=== PATIENT | male | born 1960 | race Caucasian/White ===

== ENCOUNTER 2016-11-07 14:59 | Emergency (ER) | payer MEDICAID ==
[~2016-11-07] VITALS: Ht 170.2 cm; Wt 61.7 kg
[~2016-11-07 14:59] MED LIST: DICLOFENAC 50MG50 MG PO; FLEXERIL10 M1 PO; FLEXERIL10 MG PO; LODINE400 MG PO; NOMEDS XX
[2016-11-07] MEDS ORDERED: BACTRIM DS 8001 TA1 PO (15:23)
--- NOTE | 2016-11-07 15:23 | Urgent Treatment Center Report ---
History of Present Issue Date/Time Seen by Provider 11/07/16 1515 Visit Reason Pt arrived:Walked Presenting Problem:PT STATES HE WAS BITTEN ON THE LEFT FOREARM YESTERDAY AND BURNED HIMSELF ON THE LEFT WRIST 2 WEEKS AGO AND REPORTS PAIN AND BURNING ON THE BITE AND BURN. Location if Accident: Onset of symptoms date/time:/ or onset unknown for:MEDICAL HX UNKNOWN Have you (or family members/close friends) recently traveled outside the [place]? N If Yes, where/when: Have you had exposure to infectious disease within the past month? TB? Other? Specify: Patient states that he recently burned his hand and wrist while working on a car States that last night he was working on another car and thinks he may have been bitten by something. States that he noticed a red area with what appears to be a insect bit in the middle and that it felt a little warm to touch and as the day went on states that pain in area continued to get worse so he decided to come in and get checked ALLERGIES Coded Allergies: Penicillins (03/03/15) Home Medications Reported Medications No Home Medications (NO HOME MEDICATIONS) 1 EACH XX ONCE History Medical History General CAD? No Angina: No OR: No Hypertension? No Hyperlipidemia? No CHF? No DVT? No PE? No COPD? No Asthma? No Anemia? No GERD? No Gastric ulcers? No GI Bleed? No Hernia? No Thyroid Problems? No Hypothyroidism? No CVA? No Seizures? No Diabetes? No Renal Insuffiency? No UTI? No Stones? No BPH? No GB Disease: No Nephritic Syndrome? No Asplenia? No Hepatitis? No Sickle Cell Disease? No Arthritis? No Migraines? No Cataracts? No Glaucoma? No MRSA? No HIV? No TB? No Anxiety? No Depression? No Cancer? No More? No Immunization HX DT/Tetanus Unknown Surgical Hx Previous Surgery?N Social History Smoking Hx Smoker: Current Every Day Smoker Tobacco: Yes Type Cigarettes Packs/day < 1 Pack Alcohol Alcohol: No Review of Systems All Other Systems Reviewed and Negative Comment burn wound on left wrist and redness and swelling to left forearm Physical Exam Vital Signs Vital Signs Date Time Temp Pulse Resp B/P Pulse O2 O2 Flow FiO2 Ox Delivery Rate 11/07 1514 98.1 71 20 114/64 97 11/07 1502 98.1 71 20 114/64 97 General Appearance normal appearance, WD/WN, no apparent distress Respiratory Status Yes: trachea midline, chest symmetrical, non tender chest. No: respiratory distress. Cardiovascular normal exam, regular rate/rhythm, no peripheral edema, no gallop Extremities Healing burn wounds on left wrist area, small round area on left forearm with redness encircling what appears to be a bite sharda. 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 No Departure Departure Time of Disposition 1519 Disposition DC Home or Self Care(routine) Clinical Impression Primary Impression: Skin infection Condition STABLE Patient Instructions DI for Wound Infection Additional Instructions Take antibiotics as prescribed Follow up with family doctor if needed REturn if needed Keep area clean and dry Monitor area for streaks or worsening of area around bite and watch for area to continue to grow despite antibiotics, fever, chills, or streaks from the area Discharge Counseling Counseled pt/family regarding diagnosis, medications/RX, home care, follow up needs Prescriptions Current Visit Scripts SULFAMETHOXAZOLE W/TRIMETHOPRI (Bactrim Ds Tab) 1 TABLET PO BID #20 TAB at 4882
[2016-11-07 15:31] VITALS: BP 114/64
--- OUTSIDE RECORDS SUMMARY | 2016-11-08 15:17 | External Medical Summary Rpt ---
Author Author , ALEX JOHNSON Address Unknown Phone [email or web address] Care Team Providers Care Construction Equipment Technician Name Role Phone AWOSIKA ITA, AWOSIKA Unavailable Unavailable ITA AWOSIKA ITA, AWOSIKA Unavailable Unavailable HAYDER ALVAREZ Unavailable Unavailable HARRIS SINGLETARY MD, Unavailable Unavailable CECILIA SINGLETARY MD [facility] Unavailable Unavailable CONSULTANTS O, [facility] RAFAEL YOUNGBLOOD, RAFAEL Unavailable Unavailable RYLIE DHEERAJ FREYA, Unavailable Unavailable DHEERAJ FREYA GORE DEN, GORE DEN Unavailable Unavailable [facility] Un[facility], [facility] YOUSIF ABR, YOUSIF Unavailable Unavailable [facility]BR [facility] Unavailable Unavailable IMAGING [facility], [facility] [place] Unavailable Unavailable HOLDINGS, [facility] Unavailable Unavailable HOLDINGS, [facility] [place] [facility] Un[facility] Unavailable [facility], [facility] Unavailable Unavailable SERVICES, [facility]available Unavailable ASSOCI, [facility] Unavailable Unavailable SURGERY, [facility] SURGERY [facility] Unavailable Unavailable MEDICAL, [facility] MEDICAL [facility], Unavailable Unavailable PLL, [facility], [facility] TAMIKA MAT, Unavailable Unavailable TAMIKA MAT SOTINGEANU FILIPE, Unavailable Unavailable SOTINGEANU FILIPE SPADY TAMIKA, SPADY TAMIKA Unavailable Unavailable RAY PRICE, RAY Unavailable Unavailable DEE PRICE, RAY Unavailable Unavailable DEE Purpose Continuity of Care Document - 04-10-2013 through 2016 Problems Code Diagnosis DOS Provider Status H547 UNSPECIFIED 12-06-2015 [facility] R0602 SHORTNESS 12-06-2015 [facility] OF BREATH FAMILY [facility] CTR R110 NAUSEA 12-06-2015 [facility] FAMILY [facility] CTR R42 DIZZINESS 12-06-2015 [facility] [place] AND [facility] GIDDINESS [facility] Z0000 ENCOUNTER 12-06-2015 LAB [facility] GEN ADULT [place] MED EXAM HOLDINGS W/O ABNORMAL FIND [id number] STRAIN 03-03-2015 [facility] TENDON LOW BACK INITIAL Z720 TOBACCO USE 03-03-2015 [facility] 66164 BORDERLINE 05-26-2014 AWOSIKA ITA GLAUC OPEN ANGLE BL FINDINGS LOW RSK 3670 HYPERMETROP 05-26-2014 AWOSIKA ITA IA 3674 PRESBYOPIA 05-26-2014 AWOSIKA ITA 66344 ABDOMINAL 03-31-2014 [facility] PA[facility], GENERAL EPIGASTRIC SURGERY V160 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[facility] 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 [facility]ULTANTS O 4139 OTHER AND 10-19-2013 [facility] UNSPECIFIED REGIONAL ANGINA MEDICAL PECTORIS 89816 CORONARY 10-19-2013 [facility] ATHEROSCLER REGIONAL OSIS [place] MEDICAL CORONARY ARTERY 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 CONSULTANTS N O 4439 UNSPECIFIED 10-19-2013 [facility] PERIPHERAL REGIONAL VASCULAR MEDICAL DISEASE 496 CHRONIC 10-19-2013 [facility] AIRWAY REGIONAL OBSTRUCTION MEDICAL NEC 93395 NONSPECIFIC 10-19-2013 [facility] ABNORMAL REGIONAL ELECTROCARD MEDICAL IOGRAM 4169 UNSPECIFIED 09-30-2013 [facility] CHRONIC [facility] PULMONARY [facility] HEART O DISEASE 7808 GENERALIZED 09-30-2013 [facility] [place] [address] SHORTNESS 09-29-2013 [facility] [place] [facility] [place] [address]49 GENERALIZED 09-16-2013 [facility] PAIN REGIONAL MEDICAL 72257 CHEST PAIN 09-10-2013 [facility] UNSPECIFIED [facility]AR [facility]S O 4589 UNSPECIFIED 09-02-2013 [facility] REGIONAL HYPOTENSION MEDICAL 7859 OTHER 08-21-2013 [facility] SYMPTOMS [facility] INVOLVING CONSULTANTS [facility] O LAR SYSTEM 27533 OTHER 08-19-2013 RAY DEE [place] [address] OTHER 08-19-2013 [facility]SPECIFIC [facility] ABNORMAL ASSOCIAT FINDING OF LUNG FIELD 7242 LUMBAGO 04-10-2013 [facility] 7246 DISORDERS 04-10-2013 [facility] 847.2 847.2 04-10-2013 [facility] REGION 8472 LUMBAR 04-10-2013 [facility] Allergies, Adverse Reactions, Alerts Type Drug Allergy Adverse Reaction to Substance Substance Reaction Severity PCN (penicillin) I-RASH Intermediate Medications Na ND Rx Da Fi Fi Am Da Di Ph RX Ph St me C No te ll ll ou ys ag ar # ys at rm s nt no ma ic us Or Da si cy ia de te s n re d OR 17 01 0 No PH 47 -1 EN 80 0- Lo AD 53 20 ng RI 80 14 er NE 2 Ac 30 ti ve MG /M L AL Vital Signs 04-10-2013 13:24 Name Value Interpretat Reference Comment ion Range BP 62 mm[Hg] Diastolic BP Systolic 128 mm[Hg] Heart 79 /min Rate/Pulse O2% 97 % Respiratory 20 /min Rate 04-10-2013 13:12 Name Value Interpretat Reference Comment ion Range BP 57 mm[Hg] Diastolic BP Systolic 125 mm[Hg] Heart 77 /min Rate/Pulse O2% 97 % Respiratory 20 /min Rate Procedures Procedure DOS Code Location Performer Comment GENERAL 49208 [facility] 6 [place] PANEL HOLDINGS HOLDINGS HEMOGLOBI 03683 LAB S[facility] LAB SUD[facility] N 6 [place] GLYCOSYLA HOLDINGS [place] [address] [place] [address] LAB [facility] LAB S[facility] PROSTATE 6 [place] SPECIFIC HOLDINGS HOLDINGS ANTIGEN TOTAL THERAPEUT 04790 JEN MENDEZON IC 5 [facility] PROPHYLAC INC INC TIC/DX INJECTION SUBQ/IM OPHTH 95780 [facility] 5 ITA ITA XM&EVAL COMPRE NEW PT 1/> VST [facility]I 41998 [facility] ITA OPHTHALMI C IMAGING OPTIC NERVE BLOOD 28674 [facility] ME[facility] COUNT 4 W W COMPLETE REGIONAL REGIONAL AUTO&AUTO MEDICAL MEDICAL DIFRNTL WBC CATHETER C1887 MICHAEL MEAWVIE GUIDING 4 W W REGIONAL REGIONAL MEDICAL MEDICAL INJECTION J2250 [facility] MEADOWVIE 4 W W MIDAZOLAM REGIONAL REGIONAL HCL PER MEDICAL MEDICAL 1 MG INJECTION J1644 CHRISVIE [facility]OW[facility] HEPARIN 4 W W SODIUM REGIONAL REGIONAL PER 1000 MEDICAL MEDICAL UNITS INJECTION J2001 MICHAEL CONTRERASWVIE 4 W W LIDOCAINE REGIONAL REGIONAL HCL MEDICAL MEDICAL INTRAVENO US INFUS 10 MG INFUSION J7030 ANDERWJOSE ANGEL BENWVIE NORMAL 4 W W SALINE REGIONAL REGIONAL SOLUTION MEDICAL MEDICAL 1000 CC R & L HRT 60723 CARDIOVAS TAMIKA CATH 4 CULAR MAT WINJX HRT CONSULTAN ART& L TS O VENTR IMG BASIC 93564 MICHAEL RODRIGUEZ METABOLIC 4 W W PANEL REGIONAL REGIONAL CALCIUM MEDICAL MEDICAL TOTAL COLLECTIO 74160 MICHAEL CONTRERASWVIE N VENOUS 4 W W BLOOD REGIONAL REGIONAL VENIPUNCT MEDICAL MEDICAL URE GLUC BLD 78580 MICHAEL RODRIGUEZ GLUC MNTR 4 W W DEV REGIONAL REGIONAL CLEARED MEDICAL MEDICAL FDA SPEC HOME USE ECG 35512 CARDIOVAS TAMIKA ROUTINE 4 CULAR MAT ECG CONSULTAN W/LEAST TS O 12 LDS W/I&R MYOCARDIA 40694 CARDIOVAS TAMIKA L SPECT 4 CULAR MAT MULTIPLE CONSULTAN STUDIES TS O CV STRS 32787 [place] YOUSIF TST 4 VALLEY ABR XERS&/OR HEART RX CONT ECG W/O I&R CV STRS 08230 CHRISJOSE ANGEL BENWVIE TST 4 W W XERS&/OR REGIONAL REGIONAL RX CONT MEDICAL MEDICAL ECG TRCG ONLY INJECTION J2785 MICHAEL CONTRERASWVIE 4 W W REGADENOS REGIONAL REGIONAL ON 0.1 MG MEDICAL MEDICAL ECHO 29001 MICHAEL RODRIGUEZ TTHRC R-T 4 W W 2D REGIONAL REGIONAL W/WOM-MOD MEDICAL MEDICAL E COMPL SPEC&COLR D NON-INVAS 73894 CARDIOVAS TAMIKA ELEANOR 4 CULAR MAT PHYSIOLOG CONSULTAN IC STUDY TS O EXTREMITY 3 LEVLS TECHNETIU A9502 MICHAEL RODRIGUEZ M TC-99M 4 W W TETROFOSM REGIONAL REGIONAL IN DX PER MEDICAL MEDICAL STUDY DOSE COLLECTIO 08802 MICHAEL CONTRERASWJOSE ANGEL N VENOUS 4 W W BLOOD REGIONAL REGIONAL VENIPUNCT MEDICAL MEDICAL URE BASIC 12588 [facility] METABOLIC 4 W W PANEL [facility] CALCIUM MEDICAL MEDICAL TOTAL LIPID 70111 MEAD[facility] MEADOW[facility]IE PANEL 4 W W [facility] MEDICAL MEDICAL HEPATIC 15829 ME[facility] MEADOWVIE FUNCTION 4 W W [facility] MEDICAL MEDICAL GASES 94071 BENWJOSE ANGEL CONTRERASWJOSE ANGEL BLOOD PH 4 W W DIRECT [facility] ALEXI XCPT [place]ICAL [place] [address] ME[facility] MEADOW[facility] FREE 4 W W THYROXINE [facility] [place] [address] ME[place] MEADOW[facility] THYROID 4 W W STIMULATI [facility] MEDICAL MEDICAL [place]ONE TSH RADIOLOGI 48531 [facility] C EXAM 4 RYLIE CHEST 2 RADIOLOGY VIEWS ASSOCIAT FRONTAL&L ATERAL BLOOD 95206 BENWJOSE ANGEL CONTRERASWVIE COUNT 4 W W COMPLETE [facility] AUTO&AUTO MEDICAL MEDICAL DIFRNTL WBC ECG 85563 CARDIOVAS TAMIKA ROUTINE 4 CULAR MAT ECG CONSULTAN W/LEAST TS O 12 LDS W/I&R ECG 61539 [facility] ROUTINE 4 DEE DEE ECG W/LEAST 12 LDS I&R ONLY RADIOLOGI 64441 [facility] C 4 DEE DEE EXAMINATI ON CHEST SINGLE VIEW FRONTAL RADEX 82217 [place] DHE[facility] SPINE 4 MEDICAL FREYA LUMBOSACR IMAGING AL 2/3 ASS VIEWS THERAPEUT 08791 JEN LI IC 4 [facility] PROPHYLAC INC INC TIC/DX INJECTION SUBQ/IM Encounters Encounter Start End Date Code Location Performer Type Date OFFICE 16196 DRE PIMENTEL DEN OUTPATIEN 6 6 FAMILY T VISIT HEALTH 25 CTR MINUTES [facility] JEN - 5 5 [facility] OUTPATIEN INC T EMERGENCY 62828 [facility] MOREIRA 5 5 PHYSICIAN U FILIPE POLLOCK S, PLLC T VISIT HIGH/URGE NT SEVERITY OFFICE 63615 MICHAEL COOK TAMIKA OUTPATIEN 4 4 W GENERAL T NEW 45 SURGERY MINUTES HOSPITAL MEAWJOSE ANGEL - 4 4 [facility] 49576 CARDIOVAS TAMIKA OUTPATIEN 4 4 CULAR MAT T VISIT CONSULTAN 40 TS O [facility] 76836 CARDIOVAS TAMIKA OUTPATIEN 4 4 CULAR MAT T NEW 60 CONSULTAN MINUTES O EMERGENCY 26921 [facility] DEPT 4 4 DEE DEE VISIT HIGH SEVERITY& THREAT FUNJ Emergency ALECIA SINGLETARY MD (ER) 4 12:17 4 13:27 [facility] JEN - Nico 4 [facility] 38592 KAREN SINGLETARY 4 4 EMERGENCY [facility] SERVICES T VISIT HIGH/URGE NT SEVERITY
--- OUTSIDE RECORDS SUMMARY | 2016-11-08 15:17 | External Medical Summary Rpt ---
Author Author , ALEX JOHNSON Address Unknown Phone [email or web address] Care Team Providers Care Counter Person Name Role Phone AWOSIKA ITA, AWOSIKA Unavailable [...] INC YOUSIF ABR, YOUSIF Unavailable Unavailable ABR [facility] Unavailable Unavailable IMAGING [facility], [facility] [place] Unavailable Unavailable HOLDINGS, [facility] [place] [facility] Unavailable Unavailable HOLDINGS, [facility] [place] [facility] Unavailable Unavailable [facility]ALTH CTR, [facility] Unavailable Unavailable SERVICES, [facility] Unavailable Unavailable ASSOCI, [facility] Unavailable Unavailable SURGERY, [facility] Unavailable Unavailable MEDICAL, [facility] MEDICAL [facility], Unavailable Unavailable PLL, [facility], [facility] TAMIKA MAT, Unavailable Unavailable TAMIKA MAT SOTINGEANU FILIPE, Unavailable Unavailable SOTINGEANU FILIPE SPADY TAMIKA, SPADY TAMIKA Unavailable Unavailable RAY PRICE, RAY Unavailable Unavailable DEE PRICE, RAY Unavailable Unavailable DEE Purpose Continuity of Care Document - 04-10-2013 through 2016 Problems Code Diagnosis DOS Provider Status H547 UNSPECIFIED 12-06-2015 [facility] R0602 SHORTNESS 12-06-2015 [facility] OF BREATH FAMILY [facility] R110 NAUSEA 12-06-2015 [facility] R42 DIZZINESS 12-06-2015 [facility] GIDDINESS [facility] Z0000 ENCOUNTER 12-06-2015 LAB [facility] GEN ADULT [place] MED EXAM HOLDINGS W/O ABNORMAL FIND [id number] STRAIN 03-03-2015 [facility] TENDON LOW BACK INITIAL Z720 TOBACCO USE 03-03-2015 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 [facility]S O 4139 OTHER AND 10-19-2013 [facility] UNSPECIFIED REGIONAL ANGINA MEDICAL PECTORIS 56234 CORONARY 10-19-2013 [facility] ATHEROSCLER REGIONAL OSIS [place] MEDICAL CORONARY ARTERY 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 CONSULTANTS N O 4439 UNSPECIFIED 10-19-2013 [facility] PERIPHERAL REGIONAL VASCULAR MEDICAL DISEASE 496 CHRONIC 10-19-2013 [facility] AIRWAY REGIONAL OBSTRUCTION MEDICAL NEC 45260 NONSPECIFIC 10-19-2013 [facility] ABNORMAL REGIONAL ELECTROCARD MEDICAL IOGRAM 4169 UNSPECIFIED 09-30-2013 [facility] CHRONIC [facility] P[facility]MON[facility] HEART O DISEASE 7808 GENERALIZED 09-30-2013 [facility] [place] [address] SHORTNESS 09-29-2013 [facility] [place] 66160 GENERALIZED 09-16-2013 [facility] PAIN REGIONAL MEDICAL 40037 CHEST PAIN 09-10-2013 [facility] UNSPECIFIED LAR CONSULTANTS O 4589 UNSPECIFIED 09-02-2013 [facility] REGIONAL HYPOTENSION MEDICAL 7859 OTHER 08-21-2013 [facility] SYMPTOMS LAR INVOLVING CONSULTANTS C[facility] O LAR SYSTEM 23087 OTHER 08-19-2013 RAY DEE [place] [address] OTHER 08-19-2013 [facility] [place] NONSPECIFIC RADIOLOGY ABNORMAL ASSOCIAT FINDING OF LUNG FIELD 7242 LUMBAGO 04-10-2013 [facility] 7246 DISORDERS 04-10-2013 [facility] 847.2 847.2 04-10-2013 [facility] REGION 8472 LUMBAR 04-10-2013 [facility] [...] Procedure DOS Code Location Performer Comment GENERAL 36034 LAB [facility] HEALTH 6 [place] PANEL HOLDINGS HOLDINGS HEMOGLOBI 49835 LAB S[facility] LAB SUD[facility] N 6 [place] GLYCOSYLA HOLDINGS [place] [address] LAB SUD[facility]IR LAB S[facility] PROSTATE 6 [place] SPECIFIC HOLDINGS HOLDINGS ANTIGEN TOTAL THERAPEUT 89232 JEN MENDEZON IC 5 [facility] PROPHYLAC INC INC TIC/DX INJECTION SUBQ/IM OPHTH 12842 [facility] 5 ITA ITA XM&EVAL COMPRE NEW PT 1/> VST COMPUTERI 12633 [facility] Z[facility] 5 ITA ITA OPHTHALMI C IMAGING OPTIC NERVE BLOOD 47657 [facility] MEADOWVIE COUNT 4 W W COMPLETE [...] MEDICAL 1000 CC R & L HRT 40114 CARDIOVAS TAMIKA CATH 4 CULAR MAT WINJX HRT CONSULTAN ART& L TS O VENTR IMG BASIC 51526 MICHAEL RODRIGUEZ METABOLIC 4 W W PANEL REGIONAL REGIONAL CALCIUM MEDICAL MEDICAL TOTAL COLLECTIO 22549 MICHAEL CONTRERASWVIE N VENOUS 4 W W BLOOD REGIONAL REGIONAL VENIPUNCT MEDICAL MEDICAL URE GLUC BLD 97713 MICHAEL RODRIGUEZ GLUC MNTR 4 W W DEV REGIONAL REGIONAL CLEARED MEDICAL MEDICAL FDA SPEC HOME USE ECG 26276 CARDIOVAS TAMIKA ROUTINE 4 CULAR MAT ECG CONSULTAN W/LEAST TS O 12 LDS W/I&R MYOCARDIA 61044 CARDIOVAS TAMIKA L SPECT 4 CULAR MAT MULTIPLE CONSULTAN STUDIES TS O CV STRS 97559 [place] YOUSIF TST 4 VALLEY ABR XERS&/OR HEART RX CONT ECG W/O I&R CV STRS 38368 CHRISJOSE ANGEL BENWVIE TST 4 W W XERS&/OR REGIONAL REGIONAL RX CONT MEDICAL MEDICAL ECG TRCG ONLY INJECTION J2785 MICHAEL CONTRERASWVIE 4 W W REGADENOS REGIONAL REGIONAL ON 0.1 MG MEDICAL MEDICAL ECHO 80939 MICHAEL RODRIGUEZ TTHRC R-T 4 W W 2D REGIONAL REGIONAL W/WOM-MOD MEDICAL MEDICAL E COMPL SPEC&COLR D NON-INVAS 87347 CARDIOVAS TAMIKA ELEANOR 4 CULAR MAT PHYSIOLOG CONSULTAN IC STUDY TS O EXTREMITY 3 LEVLS TECHNETIU A9502 MICHAEL RODRIGUEZ M TC-99M 4 W W TETROFOSM REGIONAL REGIONAL IN DX PER MEDICAL MEDICAL STUDY DOSE COLLECTIO 46418 MICHAEL CONTRERASWJOSE ANGEL N VENOUS 4 W W BLOOD REGIONAL REGIONAL VENIPUNCT MEDICAL MEDICAL URE BASIC 63366 [facility] ME[facility] METABOLIC 4 W W PANEL [facility] CALCIUM MEDICAL MEDICAL TOTAL LIPID 31274 MEAD[facility] MEADOWVIE PANEL 4 W W [facility] MEDICAL MEDICAL HEPATIC 95100 ME[facility] MEADOWVIE FUNCTION 4 W W [facility] MEDICAL MEDICAL GASES 27006 BENWJOSE ANGEL CONTRERASWJOSE ANGEL BLOOD PH 4 W W DIRECT [facility] ALEXI XCPT [place]ICAL [place] [address] ME[facility]VIE MEADOWVIE FREE 4 W W THYROXINE [facility] [place] [address] MEADOWVIE MEADOWVIE THYROID 4 W W STIMULATI [facility] MEDICAL MEDICAL [place] TSH RADIOLOGI 82956 [facility] C EXAM 4 RYLIE CHEST 2 RADIOLOGY VIEWS ASSOCIAT FRONTAL&L ATERAL BLOOD 06905 BENWJOSE ANGEL CONTRERASWVIE COUNT 4 W W COMPLETE [facility] AUTO&AUTO MEDICAL MEDICAL DIFRNTL WBC ECG 66361 CARDIOVAS TAMIKA ROUTINE 4 CULAR MAT ECG CONSULTAN W/LEAST TS O 12 LDS W/I&R ECG 28152 [facility] ROUTINE 4 DEE DEE ECG W/LEAST 12 LDS I&R ONLY RADIOLOGI 42523 [facility] C 4 DEE DEE EXAMINATI ON CHEST SINGLE VIEW FRONTAL RADEX 77481 [place] DHEER[facility] SPINE 4 MEDICAL FREYA LUMBOSACR IMAGING AL 2/3 ASS VIEWS THERAPEUT 80651 JEN LI IC 4 [facility] PROPHYLAC INC INC TIC/DX INJECTION SUBQ/IM Encounters Encounter Start End Date Code Location Performer Type Date OFFICE 76838 DRE PIMENTEL DEN OUTPATIEN 6 6 FAMILY T VISIT HEALTH 25 CTR MINUTES [facility]OSPITAL JEN - 5 5 [facility] OUTPATIEN INC T EMERGENCY 42466 [facility] MOREIRA 5 5 PHYSICIAN U FILIPE POLLOCK S, PLLC T VISIT HIGH/URGE NT SEVERITY OFFICE 84569 MICHAEL COOK TAMIKA OUTPATIEN 4 4 W GENERAL T NEW 45 SURGERY MINUTES [facility]OSPITAL MEAWJOSE ANGEL - 4 4 W [facility] 78479 CARDIOVAS TAMIKA OUTPATIEN 4 4 CULAR MAT T VISIT CONSULTAN 40 TS O [facility] MEAWVIE - 4 4 W [facility] - 4 4 W [facility] 38058 CARDIOVAS TAMIKA OUTPATIEN 4 4 CULAR MAT T NEW 60 CONSULTAN MINUTES O EMERGENCY 05599 [facility] DEPT 4 4 DEE DEE VISIT HIGH SEVERITY& THREAT FUNJ Emergency ALECIA SINGLETARY MD (ER) 4 12:17 4 13:27 [facility] JEN - Nico 4 [facility] 37763 KAREN SINGLETARY 4 4 EMERGENCY [facility] SERVICES T VISIT HIGH/URGE NT SEVERITY
--- OUTSIDE RECORDS SUMMARY | 2016-11-08 15:18 | External Medical Summary Rpt ---
Author Author ALEX Mayer, [employer] Organization [employer] Address Unknown Phone Unavailable
--- OUTSIDE RECORDS SUMMARY | 2016-11-08 15:18 | External Medical Summary Rpt ---
Author Author , ALEX JOHNSON Address Unknown Phone [email or web address] Care Team Providers Care Transfer Pumper Name Role Phone AWOSIKA ITA, AWOSIKA Unavailable Unavailable ITA AWOSIKA ITA, AWOSIKA Unavailable Unavailable ITA SINGLETARY BRO, SINGLETARY Unavailable Unavailable BRO [facility] Unavailable Unavailable CONSULTANTS O, [facility] RAFAEL YOUNGBLOOD, RAFAEL Unavailable Unavailable RYLIE DHEERAJ FREYA, Unavailable Unavailable DHEERAJ FREYA GORE DEN, GORE DEN Unavailable Unavailable [facility], [facility] YOUSIF ABR, YOUSIF Unavailable Unavailable [facility] Un[facility] [place] Unavailable Unavailable [facility]INGS, [facility] [place] Unavailable Unavailable [facility]INGS[facility] [place] [facility] Unavailable Unavailable [facility], [facility] Unavailable Unavailable SERVICES, [facility] Un[facility] Unavailable Unavailable SURGERY, [facility] Unavailable Unavailable MEDICAL, [facility] MEDICAL [facility], Unavailable Unavailable PLL[facility], [facility] TAMIKA MAT, Unavailable Unavailable TAMIKA MAT SOTINGEAJOSHUA FILIPE, Unavailable Unavailable SOTINGEANU FILIPE SPADY TAMIKA, SPADY TAMIKA Unavailable Unavailable RAY PRICE, RAY Unavailable Unavailable DEE PRICE, RAY Unavailable Unavailable DEE Purpose Continuity of Care Document - 04-10-2013 through 2016 Problems Code Diagnosis DOS Provider Status H547 UNSPECIFIED 12-06-2015 [facility] VISUAL [facility] LOSS [facility]ALTH CTR R0602 SHORTNESS 12-06-2015 [facility] OF BREATH [facility] CTR R110 NAUSEA 12-06-2015 DRE CO [facility] CTR R42 DIZZINESS 12-06-2015 DRE [place] AND [facility] GIDDINESS [facility] CTR Z0000 ENCOUNTER 12-06-2015 [facility] GEN ADULT [place] MED EXAM HOLDINGS W/O ABNORMAL FIND [id number] STRAIN 03-03-2015 [facility] TENDON LOW BACK INITIAL Z720 TOBACCO USE 03-03-2015 [facility] 32600 BORDERLINE 05-26-2014 AWOSIKA ITA GLAUC OPEN ANGLE BL FINDINGS LOW RSK 3670 HYPERMETROP 05-26-2014 AWOSIKA ITA IA 3674 PRESBYOPIA 05-26-2014 AWOSIKA ITA 84687 ABDOMINAL 03-31-2014 [facility] PAIN, GENERAL EPIGASTRIC SURGERY V160 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[facility] 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 [facility]ANTS O 4139 OTHER AND 10-19-2013 [facility] UNSPECIFIED REGIONAL [facility] [facility] [place] 57835 CORONARY 10-19-2013 [facility] ATHEROSCLER REGIONAL OSIS [facility] MEDICAL CORONARY ARTERY 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 CONSULTANTS N O 4439 UNSPECIFIED 10-19-2013 [facility] PERIPHERAL REGIONAL VASCULAR MEDICAL DISEASE 496 CHRONIC 10-19-2013 [facility] AIRWAY REGIONAL OBSTRUCTION MEDICAL NEC 87860 NONSPECIFIC 10-19-2013 [facility] ABNORMAL REGIONAL ELECTROCARD MEDICAL IOGRAM 4169 UNSPECIFIED 09-30-2013 [facility] CHRONIC [facility] PULMONARY [facility] HEART O DISEASE 7808 GENERALIZED 09-30-2013 [facility] [place] [address] SHORTNESS 09-29-2013 [facility] [place] [facility] [place] 10386 GENERALIZED 09-16-2013 [facility] PAIN REGIONAL MEDICAL 54525 CHEST PAIN 09-10-2013 [facility] UNSPECIFIED LAR [facility]SULTANTS O 4589 UNSPECIFIED 09-02-2013 [facility] REGIONAL HYPOTENSION MEDICAL 7859 OTHER 08-21-2013 [facility] SYMPTOMS LAR INVOLVING CONSULTANTS [facility] O LAR SYSTEM 35884 OTHER 08-19-2013 RAY DEE [place] [address] OTHER 08-19-2013 [facility] NONSPECIFIC RADIOLOGY ABNORMAL ASSOCIAT FINDING OF LUNG FIELD 7242 LUMBAGO 04-10-2013 [facility] 7246 DISORDERS 04-10-2013 [facility] 8472 LUMBAR 04-10-2013 [facility] Procedures Procedure DOS Code Location Performer Comment GENERAL 14986 [facility] HEALTH 6 [place] [address] [facility] PROSTATE 6 [place] SPECIFIC HOLDINGS HOLDINGS ANTIGEN TOTAL HEMOGLOBI 71533 [facility] N 6 [place] GLYCOSYLA HOLDINGS HOLDINGS NORAH A1C THERAPEUT 79883 JEN LI IC 5 [facility] PROPHYLAC INC INC TIC/DX INJECTION SUBQ/IM OPHTH 45690 DEILA KUMAROSIKA MEDICAL 5 ITA ITA XM&EVAL COMPRE NEW PT 1/> VST COMPUTERI 30213 DELIA LIN ZED 5 ITA ITA OPHTHALMI C IMAGING OPTIC NERVE INJECTION J1644 [facility] HEPARIN 4 W W SODIUM REGIONAL REGIONAL PER 1000 MEDICAL MEDICAL UNITS INJECTION J2001 [facility]IE 4 W W LIDOCAINE REGIONAL REGIONAL HCL MEDICAL MEDICAL INTRAVENO US INFUS 10 MG R & L HRT 12108 [facility] CATH 4 W W WINJX HRT REGIONAL REGIONAL ART& L MEDICAL MEDICAL VENTR IMG INFUSION J7030 [facility] NORMAL 4 W W SALINE REGIONAL REGIONAL SOLUTION MEDICAL MEDICAL 1000 CC BASIC 27684 [facility] METABOLIC 4 W W PANEL REGIONAL REGIONAL CALCIUM MEDICAL MEDICAL TOTAL BLOOD 84116 [facility] COUNT 4 W W COMPLETE REGIONAL REGIONAL AUTO&AUTO MEDICAL MEDICAL DIFRNTL WBC COLLECTIO 46942 [facility] N VENOUS 4 W W BLOOD REGIONAL REGIONAL VENIPUNCT MEDICAL MEDICAL URE CATHETER C1887 [facility] GUIDING 4 W W REGIONAL REGIONAL MEDICAL MEDICAL INJECTION J2250 [facility]ADOW[facility] 4 W W MIDAZOLAM REGIONAL REGIONAL HCL PER MEDICAL MEDICAL 1 MG GLUC BLD 05560 [facility] GLUC MNTR 4 W W DEV REGIONAL REGIONAL CLEARED MEDICAL MEDICAL FDA SPEC HOME USE ECG 01413 CARDIOVAS TAMIKA ROUTINE 4 CULAR MAT ECG CONSULTAN W/LEAST TS O 12 LDS W/I&R MYOCARDIA 46463 CARDIOVAS TAMIKA L SPECT 4 CULAR MAT MULTIPLE CONSULTAN STUDIES TS O CV STRS 42699 [facility] TST 4 VALLEY ABR XERS&/OR HEART RX CONT ECG W/O I&R CV STRS 80717 [facility] TST 4 W W XERS&/OR REGIONAL REGIONAL RX CONT MEDICAL MEDICAL ECG TRCG ONLY ECHO 24798 MEADOWJOSE ANGEL [facility] TTHRC R-T 4 W W 2D REGIONAL REGIONAL W/WOM-MOD MEDICAL MEDICAL E COMPL SPEC&COLR D NON-INVAS 32879 BENWJOSE ANGEL [facility] ELEANOR 4 W W PHYSIOLOG REGIONAL REGIONAL IC STUDY MEDICAL MEDICAL EXTREMITY 3 LEVLS TECHNETIU A9502 BENWJOSE ANGEL CONTRERASWJOSE ANGEL M TC-99M 4 W W TETROFOSM REGIONAL REGIONAL IN DX PER MEDICAL MEDICAL STUDY DOSE INJECTION J2785 [facility] 4 W W REGADENOS [facility] ON 0.1 MG MEDICAL MEDICAL BASIC 63187 [facility] METABOLIC 4 W W [facility] CALCIUM MEDICAL MEDICAL TOTAL COLLECTIO 54684 MEAWJOSE ANGEL [facility] N VENOUS 4 W W BLOOD REGIONAL REGIONAL VENIPUNCT MEDICAL MEDICAL URE BLOOD 15649 [facility] COUNT 4 W W COMPLETE REGIONAL REGIONAL AUTO&AUTO MEDICAL MEDICAL DIFRNTL WBC RADIOLOGI 62806 [facility] C EXAM 4 RYLIE CHEST 2 RADIOLOGY VIEWS ASSOCIAT FRONTAL&L ATERAL LIPID 10911 [facility] PANEL 4 W W [facility] MEDICAL MEDICAL HEPATIC 84739 [facility] FUNCTION 4 W W [facility] MEDICAL MEDICAL GASES 36822 [facility] BLOOD PH 4 W W DIRECT REGIONAL REGIONAL ALEXI XCPT [place]ICAL [place] [address] [facility] FREE 4 W W THYROXINE [facility] [place] [address] [facility] THYROID 4 W W STIMULATI REGIONAL [facility] MEDICAL MEDICAL HORMONE TSH ECG 23584 CARDIOVAS TAMIKA ROUTINE 4 CULAR MAT ECG CONSULTAN W/LEAST TS O 12 LDS W/I&R RADIOLOGI 24879 RAY RAY C 4 DEE DEE EXAMINATI ON CHEST SINGLE VIEW FRONTAL ECG 74716 RAY BELL ROUTINE 4 DEE DEE ECG W/LEAST 12 LDS I&R ONLY RADEX 71891 ESTEFANY DHEERAJ SPINE 4 MEDICAL FREYA LUMBOSACR IMAGING AL 2/3 ASS VIEWS THERAPEUT 53278 J[facility] LI IC 4 [facility] INC INC TIC/DX INJECTION SUBQ/IM Encounters Encounter Start End Date Code Location Performer Type Date OFFICE 32983 DRE [facility] LOREN DEN OUTPATIEN 6 6 FAMILY T VISIT [facility]ALTH [facility] - 5 5 [facility] T EMERGENCY 02774 THOM[facility] MOREIRA 5 5 PHYSICIAN [facility] S, [facility] T VISIT HIGH/URGE NT SEVERITY OFFICE 16505 MICHAEL COOK TAMIKA OUTPATIEN 4 4 W GENERAL T [facility] 45 SURGERY [facility] MICHAEL - 4 4 [facility] 95930 CARDIOVAS TAMIKA OUTPATIEN 4 4 CULAR MAT T VISIT CONSULTAN 40 TS O [facility] MICHAEL - 4 4 W [facility] MICHAEL - 4 4 W [facility] MICHAEL - 4 4 W [facility] MEDICAL OFFICE 62464 CARDIOVAS TAMIKA OUTPATIEN 4 4 CULAR MAT T NEW 60 CONSULTAN MINUTES TS O EMERGENCY 84109 RAY BELL DEPT 4 4 DEE DEE VISIT HIGH SEVERITY& THREAT FUNCJ EMERGENCY 96048 KAREN SINGLETARY 4 4 EMERGENCY [facility] SERVICES T VISIT HIGH/URGE NT SEVERITY HOSPITAL JEN - 4 4 [facility]EN INC T
--- OUTSIDE RECORDS SUMMARY | 2016-11-08 15:18 | External Medical Summary Rpt ---
Demographics Preferred Language Japanese Marital Status Unknown Episcopal Affiliation Unknown Race Unknown Ethnic Group Unknown Author Author ALEX Address Unknown Phone Immunization No patient found.
--- OUTSIDE RECORDS SUMMARY | 2016-11-08 15:18 | External Medical Summary Rpt ---
Author Author , ALEX JOHNSON Address Unknown Phone [email or web address] T[employer] Care Team Providers Care Model Dresser Name Role Phone AWOSIKA ITA, AWOSIKA Unavailable Unavailable ITA AWOSIKA ITA, AWOSIKA Unavailable Unavailable ITA SINGLETARY BRO, SINGLETARY Unavailable Unavailable BRO [facility] Unavailable Unavailable CONSULTANTS O, [facility] CON[facility] O RAFAEL YOUNGBLOOD, RAFAEL Unavailable Unavailable RYLIE DHEERAJ FREYA, Unavailable Unavailable DHEERAJ FREYA GORE DEN, GORE DEN Unavailable Unavailable [facility] Un[facility] Un[facility] INC, [facility] YOUSIF ABR, YOUSIF Unavailable Unavailable [facility]BR [facility] Unavailable Unavailable IM[facility]ING [facility], [facility] [place] Unavailable Unavailable HOLDINGS, [facility] [place] [facility] [place] Unavailable Unavailable HOLDINGS, [facility] [place] [facility] Unavailable Unavailable HEALTH CTR, [facility] Unavailable Unavailable SERVICES, [facility] Un[facility] Un[facility] Unavailable Unavailable SURGERY, [facility] Unavailable Unavailable MEDICAL, [facility] MEDICAL [facility], Unavailable Unavailable PLLC, [facility] TAMIKA MAT, Unavailable Unavailable TAMIKA MAT SOTINGEAJOSHUA FILIPE, Unavailable Unavailable SOTINGEANU FILIPE SPADY TAMIKA, SPADY TAMIKA Unavailable Unavailable RAY PRICE, RAY Unavailable Unavailable DEE PRICE, RAY Unavailable Unavailable DEE Purpose Continuity of Care Document - 04-10-2013 through 2016 Problems Code Diagnosis DOS Provider Status H547 UNSPECIFIED 12-06-2015 DRE DÍAZ VISUAL [facility] LOSS HEALTH CTR R0602 SHORTNESS 12-06-2015 DRE DÍAZ OF BREATH [facility] CTR R110 NAUSEA 12-06-2015 DRE CO [facility] CTR R42 DIZZINESS 12-06-2015 DRE [place] AND [facility] GIDDINESS [facility] CTR Z0000 ENCOUNTER 12-06-2015 LAB [facility] GEN ADULT [place] MED EXAM HOLDINGS W/O ABNORMAL FIND [id number] STRAIN 03-03-2015 [facility] TENDON LOW BACK INITIAL Z720 TOBACCO USE 03-03-2015 [facility] 64704 BORDERLINE 05-26-2014 AWOSIKA ITA GLAUC OPEN ANGLE BL FINDINGS LOW RSK 3670 HYPERMETROP 05-26-2014 AWOSIKA ITA IA 3674 PRESBYOPIA 05-26-2014 AWOSIKA ITA 95107 ABDOMINAL 03-31-2014 [facility] PAIN, GENERAL EPIGASTRIC SURGERY V160 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[facility] 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 [facility]S O 4139 OTHER AND 10-19-2013 [facility] UNSPECIFIED REGIONAL [facility] [place] 60610 CORONARY 10-19-2013 [facility] ATHEROSCLER REGIONAL OSIS [facility] MEDICAL CORONARY ARTERY 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 CONSULTANTS N O 4439 UNSPECIFIED 10-19-2013 [facility] PERIPHERAL REGIONAL VASCULAR MEDICAL DISEASE 496 CHRONIC 10-19-2013 [facility] AIRWAY REGIONAL OBSTRUCTION MEDICAL NEC 78053 NONSPECIFIC 10-19-2013 [facility] ABNORMAL REGIONAL ELECTROCARD MEDICAL IOGRAM 4169 UNSPECIFIED 09-30-2013 [facility] CHRONIC [facility] PULMONARY [facility] HEART O DISEASE 7808 GENERALIZED 09-30-2013 [facility] [place] [address] SHORTNESS 09-29-2013 [facility] [place] [facility] [place] 80980 GENERALIZED 09-16-2013 [facility] PAIN REGIONAL MEDICAL 59005 CHEST PAIN 09-10-2013 [facility] UNSPECIFIED LAR [facility]SULTANTS O 4589 UNSPECIFIED 09-02-2013 [facility] REGIONAL HYPOTENSION MEDICAL 7859 OTHER 08-21-2013 [facility] SYMPTOMS LAR INVOLVING CONSULTANTS C[facility] O LAR SYSTEM 33362 OTHER 08-19-2013 RAY DEE [place] [address] OTHER 08-19-2013 [facility] NONSPECIFIC RADIOLOGY ABNORMAL ASSOCIAT FINDING OF LUNG FIELD 7242 LUMBAGO 04-10-2013 [facility] 7246 DISORDERS 04-10-2013 [facility] 8472 LUMBAR 04-10-2013 [facility] Procedures Procedure DOS Code Location Performer Comment GENERAL 54323 [facility] HEALTH 6 [place] [address] LAB [facility] LAB [facility] PROSTATE 6 [place] SPECIFIC HOLDINGS HOLDINGS ANTIGEN TOTAL HEMOGLOBI 81950 LAB S[facility] LAB S[facility] N 6 [place] GLYCOSYLA HOLDINGS HOLDINGS NORAH A1C THERAPEUT 92744 JEN LI IC 5 [facility] PROPHYLAC INC INC TIC/DX INJECTION SUBQ/IM OPHTH 71746 DELIA KUMAROSIKA MEDICAL 5 ITA ITA XM&EVAL COMPRE NEW PT 1/> VST COMPUTERI 21104 DELIA LIN ZED 5 ITA ITA OPHTHALMI C IMAGING OPTIC NERVE INJECTION J1644 [facility] HEPARIN 4 W W SODIUM REGIONAL REGIONAL PER 1000 MEDICAL MEDICAL UNITS INJECTION J2001 [facility]OWVIE 4 W W LIDOCAINE REGIONAL REGIONAL HCL MEDICAL MEDICAL INTRAVENO US INFUS 10 MG R & L HRT 28799 [facility] CATH 4 W W WINJX HRT REGIONAL REGIONAL ART& L MEDICAL MEDICAL VENTR IMG INFUSION J7030 [facility] NORMAL 4 W W SALINE REGIONAL REGIONAL SOLUTION MEDICAL MEDICAL 1000 CC BASIC 01252 [facility] METABOLIC 4 W W PANEL REGIONAL REGIONAL CALCIUM MEDICAL MEDICAL TOTAL BLOOD 39286 [facility] COUNT 4 W W COMPLETE REGIONAL REGIONAL AUTO&AUTO MEDICAL MEDICAL DIFRNTL WBC COLLECTIO 16685 [facility] N VENOUS 4 W W BLOOD REGIONAL REGIONAL VENIPUNCT MEDICAL MEDICAL URE CATHETER C1887 [facility] GUIDING 4 W W REGIONAL REGIONAL MEDICAL MEDICAL INJECTION J2250 [facility] MEADOWVIE 4 W W MIDAZOLAM REGIONAL REGIONAL HCL PER MEDICAL MEDICAL 1 MG GLUC BLD 06210 [facility] GLUC MNTR 4 W W DEV REGIONAL REGIONAL CLEARED MEDICAL MEDICAL FDA SPEC HOME USE ECG 54322 CARDIOVAS TAMIKA ROUTINE 4 CULAR MAT ECG CONSULTAN W/LEAST TS O 12 LDS W/I&R MYOCARDIA 44638 CARDIOVAS TAMIKA L SPECT 4 CULAR MAT MULTIPLE CONSULTAN STUDIES TS O CV STRS 88949 [facility] TST 4 VALLEY ABR XERS&/OR HEART RX CONT ECG W/O I&R CV STRS 56689 [facility] TST 4 W W XERS&/OR REGIONAL REGIONAL RX CONT MEDICAL MEDICAL ECG TRCG ONLY ECHO 86916 MEADOWJOSE ANGEL [facility] TTHRC R-T 4 W W 2D REGIONAL REGIONAL W/WOM-MOD MEDICAL MEDICAL E COMPL SPEC&COLR D NON-INVAS 76340 BENWJOSE ANGEL [facility] ELEANOR 4 W W PHYSIOLOG REGIONAL REGIONAL IC STUDY MEDICAL MEDICAL EXTREMITY 3 LEVLS TECHNETIU A9502 BENWJOSE ANGEL CONTRERASWJOSE ANGEL M TC-99M 4 W W TETROFOSM REGIONAL REGIONAL IN DX PER MEDICAL MEDICAL STUDY DOSE INJECTION J2785 [facility] MEADOWVIE 4 W W REGADENOS [facility] ON 0.1 MG MEDICAL MEDICAL BASIC 37953 [facility] METABOLIC 4 W W [facility] CALCIUM MEDICAL MEDICAL TOTAL COLLECTIO 44184 MEAWJOSE ANGEL [facility] N VENOUS 4 W W BLOOD REGIONAL REGIONAL VENIPUNCT MEDICAL MEDICAL URE BLOOD 45585 [facility] COUNT 4 W W COMPLETE REGIONAL REGIONAL AUTO&AUTO MEDICAL MEDICAL DIFRNTL WBC RADIOLOGI 08301 [facility] C EXAM 4 RYLIE CHEST 2 RADIOLOGY VIEWS ASSOCIAT FRONTAL&L ATERAL LIPID 52731 [facility] PANEL 4 W W [facility] MEDICAL MEDICAL HEPATIC 30876 [facility] ME[facility]IE FUNCTION 4 W W [facility] MEDICAL MEDICAL GASES 92251 [facility] BLOOD PH 4 W W DIRECT REGIONAL REGIONAL ALEXI XCPT [place]ICAL [place] [address] [facility] FREE 4 W W THYROXINE [facility] [place] [address] ME[facility] MEADOWVIE THYROID 4 W W STIMULATI REGIONAL [facility] NG MEDICAL MEDICAL HORMONE TSH ECG 59325 CARDIOVAS TAMIKA ROUTINE 4 CULAR MAT ECG CONSULTAN W/LEAST TS O 12 LDS W/I&R RADIOLOGI 25096 RAY RAY C 4 DEE DEE EXAMINATI ON CHEST SINGLE VIEW FRONTAL ECG 52484 RAY BELL ROUTINE 4 DEE DEE ECG W/LEAST 12 LDS I&R ONLY RADEX 66889 ESTEFANY DHEERAJ SPINE 4 MEDICAL FREYA LUMBOSACR IMAGING AL 2/3 ASS VIEWS THERAPEUT 08793 JEN LI IC 4 [facility] PROPHY[facility]AC INC INC TIC/DX INJECTION SUBQ/IM Encounters Encounter Start End Date Code Location Performer Type Date OFFICE 39234 DRE DÍAZ LOREN DEN OUTPATIEN 6 6 FAMILY T VISIT HEALTH 25 [facility] - 5 5 [facility] T EMERGENCY 64052 THOMAS MOREIRA 5 5 PHYSICIAN [facility] S, [facility] T VISIT HIGH/URGE NT SEVERITY OFFICE 02404 MICHAEL COOK TAMIKA OUTPATIEN 4 4 W GENERAL T [facility] 45 SURGERY [facility]EL - [facility] 90163 CARDIOVAS TAMIKA OUTPATIEN 4 4 CULAR MAT T VISIT CONSULTAN 40 TS O [facility] MICHAEL - 4 4 W [facility] 4 4 W [facility] - 4 4 W [facility] MEDICAL OFFICE 18214 CARDIOVAS TAMIKA OUTPATIEN 4 4 CULAR MAT T NEW 60 CONSULTAN MINUTES TS O EMERGENCY 84701 RAY BELL DEPT 4 4 DEE DEE VISIT HIGH SEVERITY& THREAT FUNCJ EMERGENCY 86783 KAREN SINGLETARY 4 4 EMERGENCY [facility] SERVICES T VISIT HIGH/URGE NT SEVERITY HOSPITAL JEN - 4 4 [facility] T
--- OUTSIDE RECORDS SUMMARY | 2016-11-08 15:18 | External Medical Summary Rpt ---
Demographics Preferred Language Tuvaluan Marital Status Unknown Congregational Affiliation Unknown Race Unknown Ethnic Group Unknown Author Author ALEX Address Unknown Phone Immunization No patient found.
== END 2016-11-07 15:37 | disposition home or self-care (01) ==
LOC: ER 14:59 → UTC 15:10 → ER 15:10 → UTC 15:37
DX: L03.114 Cellulitis of left upper limb (principal)